=== PATIENT | female | born 1960 | race Two or more races ===

== ENCOUNTER 2023-01-25 09:50 | Day surgery (SDC) | payer BC, OTHER ==
[~2023-01-25 09:50] MED LIST: Lactated Ringers 1,000 ML IV SCH; Sodium Chloride 0.9% 10 ML Syringe FLUSH PRN; Sodium Chloride 0.9% 2.5 ML Syringe FLUSH PRN; Sodium Chloride 0.9% 20 ML SDV IV PRN
[2023-01-25] MEDS ORDERED: Lidocaine 2% 5 ML SDV ONE (11:13)
[2023-01-25] MEDS ORDERED: Propofol 200 MG/20 ML SDV ONE (11:14)
== END 2023-01-25 12:14 | disposition home or self-care (01) ==
LOC: MW.SDS 09:50
PROVIDERS: ATTEND Surgery
DX: Z12.11 Encounter for screening for malignant neoplasm of colon (principal); D12.3 Benign neoplasm of transverse colon; E03.9 Hypothyroidism, unspecified; K63.89 Other specified diseases of intestine; E78.00 Pure hypercholesterolemia, unspecified; Z87.891 Personal history of nicotine dependence; Z90.710 Acquired absence of both cervix and uterus; Z79.899 Other long term (current) drug therapy; Z80.0 Family history of malignant neoplasm of digestive organs
CPT/HCPCS: 45380; J2704; J7120; 00811; J3490